=== PATIENT | female | born 1970 | race Caucasian/White ===

== ENCOUNTER 2016-07-30 09:51 | Emergency (ER) | payer OTHER ==
[2016-07-30 11:22] LABS: BASO # 0.1 K/mm3 (0.0-0.2); BASO % 1.2 % (0.2-1.0); EOS # 0.1 (0.0-0.5); EOS % 1.5 % (0.9-2.9); HEMATOCRIT 41.6 % (37.0-47.0); HEMOGLOBIN 13.6 gm/l (12.0-16.0); IMM NEUT% 0.2 % (0-1); LYMPH % 29.4 % (15-45); MEAN CELL VOLUME 93.1 fl (81.0-99.0); MEAN CORPUSCULAR HEMOGLOBIN 30.4 pg (27.0-31.0); MEAN CORPUSCULAR HGB CONC 32.7 g/dl (33.0-37.0); MEAN PLATELET VOLUME 8.9 fl (7.4-10.4); MONO # 0.5 (0.0-0.8); NEUT % 59.7 % (43-75); PLATELET COUNT 231 K/mm3 (130-400); RED CELL DISTRIBUTION WIDTH 12.4 % (11.5-14.5); SPECIFIC GRAVITY 1.015 (1.001-1.030); URINE BILIRUBIN NEGATIVE (NEGATIVE); URINE BLOOD NEGATIVE (NEGATIVE); URINE GLUCOSE (UA) NEGATIVE (NEGATIVE); URINE LEUKOCYTE ESTERASE NEGATIVE (NEGATIVE); URINE NITRITE NEGATIVE (NEGATIVE); URINE PROTEIN NEGATIVE (NEGATIVE); URINE UROBILINOGEN NORMAL (0-1 mg/dl)
[2016-07-30 11:23] LABS: URINE APPEARANCE HAZY; URINE COLOR YELLOW
[2016-07-30 11:37] LABS: AMPHETAMINES/METHAMPHETAMINES NEGATIVE (NEGATIVE); COCAINE NEGATIVE (NEGATIVE); MARIJUANA NEGATIVE (NEGATIVE); METHADONE NEGATIVE (NEGATIVE); OPIATES NEGATIVE (NEGATIVE); TRICYCLIC ANTIDEPRESSANTS NEGATIVE (NEGATIVE)
[2016-07-30 11:38] LABS: URINE AMORPHOUS SEDIMENT 4+; URINE BACTERIA RARE; URINE EPITHELIAL CELLS RARE /hpf; URINE RBC 0 /hpf; URINE WBC NEG /hpf
[2016-07-30 11:48] LABS: ALB/GLOB RATIO 1.6 (>1.0); ALBUMIN 4.1 gm/dL (3.5-5.7); CALCIUM 9.4 mg/dL (8.6-10.3)
[2016-07-30 12:09] LABS: ACETAMINOPHEN < 10 ug/ml
[2016-07-30 12:11] LABS: SALICYLATE < 5 mg/dl (0-30)
[2016-07-30] MEDS ORDERED: DIAZEPAM 5 MG TABLET ONE (13:34)
== END 2016-07-30 16:04 | disposition short-term general hospital (02) ==
LOC: ED 09:51
DX: F31.9 Bipolar disorder, unspecified (principal); R45.851 Suicidal ideations
CPT/HCPCS: 80307 ×2; 85025; 80305; 80053; 81001; 99284 ×2; 36415; A9270